=== PATIENT | female | born 1955 | race Caucasian/White ===

== ENCOUNTER 2025-03-30 15:45 | Inpatient (IN) | payer MEDICARE, BC ==
[2025-03-30] MEDS ORDERED: Sodium Chloride 0.9% 10 ML Syringe FLUSH PRN (16:11)
[2025-03-30 16:18] LABS: BASOPHILS PERCENT AUTO 0.3 % (0.0-1.0); EOSINOPHILS PERCENT AUTO 0.9 % (1.0-3.0); HEMATOCRIT 37.2 % (37.0-47.0); HEMOGLOBIN 11.8 g/dL (12.0-16.0); LYMPHOCYTES PERCENT AUTO 9.6 % (20.5-50.1); MEAN CORPUSCULAR HGB CONC 31.7 g/dL (33.0-35.0); MEAN CORPUSCULAR VOLUME 97.6 fL (80-100); MONOCYTES PERCENT AUTO 5.4 % (2-8); NEUTROPHILS PERCENT AUTO 83.8 % (42.2-75.2); PLATELET COUNT,PLT 216 10^3/uL (150-450); RED BLOOD CELL COUNT 3.81 10^6/uL (4.2-5.4); WHITE BLOOD CELL COUNT,WBC 6.9 10^3/uL (5.0-10.0)
[2025-03-30 16:33] LABS: PROTHROMBIN TIME 10.7 SEC (9.0-12.0); PTT,PARTIAL THROMBOPLSTIN TIME 18.1 SEC (22.0-34.0)
[2025-03-30 16:48] LABS: LACTIC ACID 1.9 mmol/L (0.4-2.0)
[2025-03-30 16:55] LABS: A/G RATIO 1.3; ALANINE AMINOTRANSFERASE,ALT 28 U/L (14-59); ALKALINE PHOSPHATASE 83 U/L (46-116); ASPARTATE AMNIOTRANSFERASE,AST 28 U/L (15-37); BILIRUBIN TOTAL 0.5 mg/dL (0.2-1.0); BLOOD UREA NITROGEN,BUN 23 mg/dL (7-18); BUN/CREATININE RATIO 16.8 (No establ ref range); CALCIUM 9.6 mg/dL (8.5-10.1); CARBON DIOXIDE,CO2 28 mmol/L (21-32); CHLORIDE,CL 105 mmol/L (98-107); CREATININE 1.37 mg/dL (0.55-1.02); GLUCOSE RANDOM 148 mg/dL (70-99); MAGNESIUM 2.1 mg/dL (1.8-2.4); PROTEIN TOTAL,TP 7.1 g/dL (6.4-8.2); SODIUM,NA 145 mmol/L (136-145)
[2025-03-30 17:01] LABS: C-REACTIVE PROTEIN < 0.50 ng/dL (<=0.50); ESTIMATED GFR 42 mL/min (>=60); ETHANOL BLOOD MEDICAL < 3 mg/dL (0)
[2025-03-30] MEDS: Sodium Chloride 0.9% 1,000 ML IV ONE (17:08)
[2025-03-30 18:05] LABS: APPEARANCE,URINE SLIGHTLY CLOUDY (CLEAR); BILIRUBIN,URINE NEGATIVE (NEGATIVE); COLOR,URINE YELLOW (YELLOW); GLUCOSE,URINE NEGATIVE (NEGATIVE); KETONES,URINE NEGATIVE (NEGATIVE); LEUKOCYTE ESTERASE,URINE SMALL (NEGATIVE); NITRITE,URINE NEGATIVE (NEGATIVE); OCCULT BLOOD,URINE NEGATIVE (NEGATIVE); PROTEIN,URINE TRACE (NEGATIVE); UROBILINOGEN,URINE 0.2 mg/dL (0.2-1.0)
[2025-03-30 18:06] LABS: AMPHETAMINES,URINE NEGATIVE (NEGATIVE); BARBITURATES,URINE NEGATIVE (NEGATIVE); BENZODIAZEPINE,URINE NEGATIVE (NEGATIVE); MDMA (ECSTASY), URINE NEGATIVE (NEGATIVE); METHADONE,URINE NEGATIVE (NEGATIVE); METHAMPHETAMINES,URINE NEGATIVE (NEGATIVE); OPIATES,URINE NEGATIVE (NEGATIVE); OXYCODONE,URINE NEGATIVE (NEGATIVE); PHENCYCLIDINE,URINE NEGATIVE (NEGATIVE); TCA,URINE NEGATIVE (NEGATIVE)
[2025-03-30 18:17] LABS: BACTERIA,URINE FEW /HPF (0-FEW/HPF); EPITHELIAL CELLS,URINE FEW /HPF (NOT SEEN); HYALINE CASTS,URINE FEW; MUCUS,URINE FEW /LPF (NOT SEEN); RBC,URINE 0-5 /HPF (0-5); WBC,URINE 20-30 /HPF (0-5/HPF)
[2025-03-30] MEDS ORDERED: Metoprolol Tartrate 5 MG/5 ML SDV IVPUSH PRN (19:55)
[2025-03-30] MEDS ORDERED: hydrALAZINE 20 MG/ML SDV IVPUSH PRN (19:55)
[2025-03-30] MEDS ORDERED: HYDROmorphone 0.5 MG/0.5 ML Syringe IVPUSH PRN (19:56)
[2025-03-30] MEDS ORDERED: Albuterol/Ipratropium 3.0-0.5 MG/3 ML Neb Soln NEB PRN (19:56)
[2025-03-30] MEDS ORDERED: Acetaminophen 325 MG Tab PO PRN ×2 (19:56→20:01)
[2025-03-30] MEDS ORDERED: Bisacodyl 10 MG Supp RECTAL PRN (19:56)
[2025-03-30] MEDS ORDERED: Magnesium Hydroxide 400 MG/5 ML Susp 30 ML Cup PO PRN (19:56)
[2025-03-30] MEDS ORDERED: Ondansetron 4 MG/2 ML SDV IVPUSH PRN (19:56)
[2025-03-30] MEDS ORDERED: Polyethylene Glycol 3350 Powder 17 GM Packet PO PRN (19:56)
[2025-03-30 20:58] LABS: T4 FREE 0.94 ng/dL (0.76-1.46); TSH ULTRASENSITIVE 0.87 uIU/mL (0.36-3.74)
[2025-03-30] MEDS: Dexamethasone 4 MG Tab PO SCH (21:13)
[2025-03-30] MEDS: Folic Acid 1 MG Tab PO SCH (21:15)
[2025-03-30] MEDS: Aspirin 81 MG Tab.EC PO SCH (21:15)
[2025-03-30] MEDS: Venlafaxine 150 MG Cap.ER PO SCH (21:15)
[2025-03-30] MEDS: Lisinopril 5 MG Tab PO SCH (21:16)
[2025-03-30] MEDS: Oxybutynin 5 MG Tab.ER PO SCH (21:17)
[2025-03-30] MEDS: levETIRAcetam 500 MG Tab PO SCH (21:17)
[2025-03-30] MEDS: Thiamine 100 MG in Sodium Chloride 0.9% 100 ML IV ONE (21:19)
[2025-03-30] MEDS: MVI, Adult with Vitamin K 10 ML, Folic Acid 1 MG, Thiamine 100 MG in Lactated Ringers 1... IV ONE (21:19)
[2025-03-30] MEDS ORDERED: traMADol 50 MG Tab PO PRN (21:20)
[2025-03-30] MEDS: Temazepam 15 MG Cap PO PRN (22:31)
[2025-03-31 06:13] LABS: BASOPHILS PERCENT AUTO 0.2 % (0.0-1.0); HEMATOCRIT 37.4 % (37.0-47.0); HEMOGLOBIN 11.5 g/dL (12.0-16.0); LYMPHOCYTES PERCENT AUTO 11.8 % (20.5-50.1); MEAN CORPUSCULAR HEMOGLOBIN 29.8 pg (27.0-34.0); MEAN CORPUSCULAR HGB CONC 30.7 g/dL (33.0-35.0); MEAN CORPUSCULAR VOLUME 96.9 fL (80-100); PLATELET COUNT,PLT 214 10^3/uL (150-450); RED BLOOD CELL COUNT 3.86 10^6/uL (4.2-5.4); WHITE BLOOD CELL COUNT,WBC 5.8 10^3/uL (5.0-10.0)
[2025-03-31 06:47] LABS: ALBUMIN 3.7 g/dL (3.4-5.0); ANION GAP 16.6 mEq/L (7-13); BILIRUBIN TOTAL 0.5 mg/dL (0.2-1.0); BUN/CREATININE RATIO 16.7 (No establ ref range); CALCIUM 9.2 mg/dL (8.5-10.1); CREATININE 1.38 mg/dL (0.55-1.02); EST CRCL DRUG DOSING (CG) 30.43 mL/min; POTASSIUM,K 4.6 mmol/L (3.5-5.1); PROTEIN TOTAL,TP 7.3 g/dL (6.4-8.2)
[2025-03-31] MEDS ORDERED: Amantadine 100 MG Cap PO SCH (09:00)
[2025-03-31] MEDS ORDERED: levETIRAcetam 500 MG Tab PO SCH (09:00)
[2025-03-31] MEDS: Multivitamins with Iron/Calcium/Folic Acid/Minerals Tab PO SCH (09:12)
[2025-03-31] MEDS: Amantadine 100 MG Cap PO SCH (09:12)
[2025-03-31] MEDS: Modafinil 100 MG Tab PO SCH (09:12)
[2025-03-31] MEDS: Venlafaxine 37.5 MG Cap.ER PO SCH (09:12)
[2025-03-31] MEDS: levETIRAcetam 500 MG Tab PO SCH (09:12)
[2025-03-31] MEDS: Calcium Carbonate/Vitamin D3 1250 MG-5 MCG Tab PO SCH (09:12)
[2025-03-31] MEDS: buPROPion 150 MG Tab.ER PO SCH (09:12)
[2025-03-31] MEDS ORDERED: Flumazenil 0.1 MG/ML 5 ML MDV IVPUSH PRN (09:13)
[2025-03-31] MEDS ORDERED: Sodium Chloride 0.9% 500 ML IV SCH (09:15)
[2025-03-31] MEDS: LORazepam 2 MG/ML SDV IVPUSH ONE (09:40)
[2025-03-31] MEDS: Sodium Chloride 0.9% 1,000 ML IV SCH (09:59)
[2025-03-31] MEDS: Melatonin 3 MG Tab PO PRN (20:27)
[2025-03-31] MEDS: Thiamine 100 MG Tab PO SCH (20:28)
[2025-03-31] MEDS: Dexamethasone 4 MG Tab PO SCH (20:28)
[2025-03-31 20:53] LABS: ANION GAP 14.5 mEq/L (7-13); CALCIUM 9.5 mg/dL (8.5-10.1); CREATININE 1.14 mg/dL (0.55-1.02); EST CRCL DRUG DOSING (CG) 36.84 mL/min; POTASSIUM,K 3.5 mmol/L (3.5-5.1)
[2025-04-01 06:24] LABS: BASOPHILS PERCENT AUTO 0.1 % (0.0-1.0); HEMATOCRIT 33.2 % (37.0-47.0); LYMPHOCYTES PERCENT AUTO 13.7 % (20.5-50.1); MEAN CORPUSCULAR HEMOGLOBIN 31.9 pg (27.0-34.0); MEAN CORPUSCULAR HGB CONC 33.1 g/dL (33.0-35.0); MEAN CORPUSCULAR VOLUME 96.2 fL (80-100); MONOCYTES PERCENT AUTO 7.6 % (2-8); NEUTROPHILS PERCENT AUTO 78.6 % (42.2-75.2); PLATELET COUNT,PLT 202 10^3/uL (150-450); RED BLOOD CELL COUNT 3.45 10^6/uL (4.2-5.4); WHITE BLOOD CELL COUNT,WBC 8.1 10^3/uL (5.0-10.0)
[2025-04-01 06:51] LABS: A/G RATIO 1.1; ALANINE AMINOTRANSFERASE,ALT 27 U/L (14-59); ALBUMIN 3.5 g/dL (3.4-5.0); ALKALINE PHOSPHATASE 68 U/L (46-116); ANION GAP 10.9 mEq/L (7-13); ASPARTATE AMNIOTRANSFERASE,AST 18 U/L (15-37); BILIRUBIN TOTAL 0.5 mg/dL (0.2-1.0); BLOOD UREA NITROGEN,BUN 15 mg/dL (7-18); BUN/CREATININE RATIO 12.5 (No establ ref range); CALCIUM 9.4 mg/dL (8.5-10.1); CARBON DIOXIDE,CO2 28 mmol/L (21-32); CHLORIDE,CL 110 mmol/L (98-107); EST CRCL DRUG DOSING (CG) 34.99 mL/min; GLUCOSE RANDOM 99 mg/dL (70-99); MAGNESIUM 1.9 mg/dL (1.8-2.4); POTASSIUM,K 3.9 mmol/L (3.5-5.1); PROTEIN TOTAL,TP 6.6 g/dL (6.4-8.2); SODIUM,NA 145 mmol/L (136-145)
[2025-04-01 06:52] LABS: C-REACTIVE PROTEIN < 0.50 ng/dL (<=0.50); ESTIMATED GFR 49 mL/min (>=60)
[2025-04-01 07:17] LABS: SEDIMENTATION RATE MANUAL 14 mm/hr (0-20)
[2025-04-01] MEDS: Oxybutynin 5 MG Tab PO SCH (20:28)
[2025-04-02] MEDS ORDERED: Zolpidem 5 MG Tab PO PRN (08:39)
[2025-04-02 22:42] LABS: KEPPRA 26 ug/mL (10-40)
[2025-04-03 07:03] LABS: A/G RATIO 1.1; ALBUMIN 3.7 g/dL (3.4-5.0); ANION GAP 10.1 mEq/L (7-13); BILIRUBIN TOTAL 0.5 mg/dL (0.2-1.0); BUN/CREATININE RATIO 19.8 (No establ ref range); CALCIUM 9.7 mg/dL (8.5-10.1); CREATININE 1.21 mg/dL (0.55-1.02); EST CRCL DRUG DOSING (CG) 34.7 mL/min; POTASSIUM,K 4.1 mmol/L (3.5-5.1)
== END 2025-04-03 08:40 | disposition other institution (70) | DRG 641 ==
LOC: DL.ED 15:45 → DL.MS 18:29 → MERGE 03-31 09:46 → OBSVTOIN 03-31 09:46
PROVIDERS: ADMIT Internal Medicine; ATTEND Internal Medicine
DX: R41.0 Disorientation, unspecified (principal); R62.7 Adult failure to thrive; F03.94 Unspecified dementia, unspecified severity, with anxiety; G81.94 Hemiplegia, unspecified affecting left nondominant side; N17.9 Acute kidney failure, unspecified; Z91.048 Other nonmedicinal substance allergy status; R53.1 Weakness; Z66 Do not resuscitate; G35 Multiple sclerosis; I10 Essential (primary) hypertension; F41.9 Anxiety disorder, unspecified; F32.A Depression, unspecified; E86.0 Dehydration; J44.9 Chronic obstructive pulmonary disease, unspecified; N13.9 Obstructive and reflux uropathy, unspecified; G40.909 Epilepsy, unspecified, not intractable, without status epilepticus; D63.8 Anemia in other chronic diseases classified elsewhere; E66.9 Obesity, unspecified; D64.9 Anemia, unspecified; R73.9 Hyperglycemia, unspecified; Z79.82 Long term (current) use of aspirin; Z79.899 Other long term (current) drug therapy; Z87.891 Personal history of nicotine dependence; Z68.24 Body mass index [BMI] 24.0-24.9, adult; Z98.49 Cataract extraction status, unspecified eye
CPT/HCPCS: 36415; 70450; 71045; 72125; 76770; 80048; 80053; 80177; 80305-QW; 80307; 81001; 82140; 82306; 82947; 83036; 83605; 83735; 84439; 84443; 84484; 85025; 85610; 85651; 85730; 86140; 87040; 87086; 93005; 93010; 96360; 96361; 96365; 96368; 96375; 97110-GO; 97110-GP; 97161-GP; 97165-GO; 97530-GO; 97530-GP; 97535-GO; 99223; 99232; 99233; 99238; 99285; 99285-25; A9270-GY; G0378; J2060; J3411; J3490; J7030; J7120; J8540